=== PATIENT | female | born 1985 | race Hispanic/Latino ===

== ENCOUNTER 2025-03-07 22:53 | Emergency (ER) | payer SELFPAY ==
[2025-03-07 23:09] VITALS: BP 139/84
[2025-03-07 23:12] VITALS: BMI 27.9
[2025-03-07 23:14] LABS: % Basophils 0.6 % (0-2); % Immature Granulocytes 0.4 % (0-0.5); % Monocytes 4.6 % (1.7-9.3); % Neutrophils 64.4 % (42.2-75.2); Absolute Basophils 0.1 10^3/uL (0-0.2); Absolute Eosinophils 0.2 10^3/uL (0-0.7); Absolute Lymphocytes 2.8 10^3/uL (1.2-3.4); Absolute Monocytes 0.5 10^3/uL (0.1-0.6); Absolute Neutrophils 6.3 10^3/uL (1.4-6.5); Hematocrit 33.3 % (37.0-47.0); Hemoglobin 11.9 g/dL (12.0-16.0); Mean Corp Hgb Conc. 35.7 g/dL (33.0-37.0); Mean Corpuscular Volume 75.5 fL (81.0-99.0); Mean Platelet Volume 9.9 fL (7.4-10.4); Nucleated Red Blood Cells % 0 %; Platelet Count 258 10^3/uL (130-400); Red Blood Cell Count 4.41 10^6/uL (4.20-5.40); Red Cell Dist. Width 14.8 % (11.5-14.5); White Blood Cell Count 9.8 10^3/uL (4.8-10.8)
--- NOTE | 2025-03-07 23:25 | ED.GENMED ---
History of Present Illness
General
Chief Complaint: Suicidal Ideation
Source: patient
Exam Limitations: none
Time Seen by Provider: 03/07/25 23:13
History of Present Illness
History of Present Illness:
39yoF with no significant past medical history presenting via EMS for psychiatric evaluation. Patient has been feeling depressed recently. She reports one stressor after another and became very overwhelmed this evening. She had a thought that it
may be easier if she was no longer alive. This thought scared her and prompted her to call EMS. She denies any suicidal plans. She sees a virtual therapist weekly. She has never received any psychiatric diagnosis in the past and has never been
on medications. No prior history of psychiatric admissions. She denies any visual or auditory hallucinations. No drug or alcohol use.
Phy Exam
General Physical Exam
General Presentation: well appearing and no apparent distress
General age: appears stated age
General Skin: warm and dry
General Habitus: normal
General Mental: alert
ENT Exam
ENT Exam: normocephalic
Pulmonary Exam
Pulmonary Exam: no respiratory distress
Neurological Exam
Neurological Exam: alert
Marco Coma Scale
Eye Opening: Spontaneous
Verbal Response: Oriented
Motor Response: Obeys Commands
GCS Total Score: 15
Skin Exam
Skin Exam: normal color and warm/dry
Psychiatric Exam
Psychiatric Exam: depressed and other (Tearful during exam. Appears depressed. +Passive SI, no plan. No signs of psychosis.)
Course
Orders/Labs/Results
Orders:
Orders
03/07/25 22:58
Crisis Consult Urgent
Reason for Consult: OVERWHELMED TIRED, SUICIDAL THOUGHT.
03/07/25 22:59
Test Result ONCE
03/07/25 23:06
Alcohol Urgent
Basic Metabolic Panel Urgent
Complete Blood Count/With Diff Urgent
HCG, Serum Qualitative Screen Urgent
Comment: Notify provider if positive test present
Abnormal Lab Results
03/07/25
23:06
Hgb 11.9 L g/dL
(12.0-16.0)
Hct 33.3 L %
(37.0-47.0)
MCV 75.5 L fL
(81.0-99.0)
RDW 14.8 H %
(11.5-14.5)
Chloride 108 H mmol/L
(98-107)
Glucose 176 H mg/dl
(70-99)
03/07/25 23:06
03/07/25 23:06
Vital Signs
Initial and Last Documented VS:
Initial Vital Signs
Temp Pulse Resp BP Pulse Ox
98.5 F 134 18 139/84 98
03/07/25 23:09 03/07/25 23:09 03/07/25 23:09 03/07/25 23:09 03/07/25 23:09
Last Documented Vital Signs
Temp Pulse Resp BP Pulse Ox
98.5 F 115 12 111/79 100
03/07/25 23:09 03/08/25 00:19 03/08/25 00:19 03/08/25 00:19 03/08/25 00:19
MDM/Problems Addressed
Differential Diagnosis Includes:
39yoF here for psychiatric evaluation. Had a passive thought that it may be better if she was gone. No active plan to harm herself. Admits to being overwhelmed recently. Patient is tachycardic on arrival and is tearful during exam. She is
forthcoming with details and there are no signs of psychosis. Differential diagnosis includes but is not limited to: Situational stress, depression
Initial ED plan: Labs sent by nursing staff prior to evaluation. Will consult crisis.
*Critical Care Note
Total Time (30-74mins, 75-104mins- exclusive of procedures): Not Applicable
Update Note
Update Note:
Patient assessed by crisis. Plan is for intensive outpatient program and patient is in agreement with this. She has a virtual appt tomorrow morning with her therapist so will have close f/u. ED return precautions reviewed. She was discharged in
stable condition.
ED Attending Note
-
Portions of this chart may have been created with voice recognition software.� Occasional wrong word or��sound alike� substitutions may have occurred due to the inherent limitations of voice recognition software.
Discharge Plan
Departure
Patient Disposition: Home (Routine Discharge)
Date of Disposition: 03/07/25
Time of Disposition: 23:54
Patient with high blood pressure during this ER visit?: No
Discharge Problem:
Suicidal ideation, Encounter for psychiatric assessment
Instructions: Depression, Adult (DC)
Referrals:
Munira Hicks MD [Family Provider] -
Activity Restrictions/Additional Instructions:
You will receive an intake phone call tomorrow for the outpatient program. Please follow-up with your therapist tomorrow as previously scheduled.
Return to the ER with any worsening symptoms including if you have any plans to hurt yourself.
Interventions
Interventions:
*Risk Screen - Suicide Last Done: 03/07/25 22:54
*General Assessment Last Done: 03/07/25 23:13
*Neglect/Abuse Screening Last Done: 03/07/25 22:54
*ED- Fall Risk Assessment Last Done: 03/07/25 23:13
*ED COVID-19 Vaccine History Last Done: 03/07/25 23:13
*Nursing Disposition Last Done: 03/08/25 00:20
ED-Psychological Assessment Last Done: 03/07/25 23:13
Discharge Date and Time
Discharge Date/Time: 03/08/25 00:21
Print Language: SLOVAK
[2025-03-07 23:27] LABS: HCG, Serum Qualitative Screen Negative
[2025-03-07 23:31] LABS: Blood Urea Nitrogen 14 mg/dl (7-17); Calcium 9.1 mg/dl (8.4-10.2); Carbon Dioxide 22 mmol/L (22-30); Chloride 108 mmol/L (98-107); Estimated Creatinine Clearance 91 ml/min; Glucose 176 mg/dl (70-99); Potassium 3.6 mmol/L (3.5-5.1); Sodium 141 mmol/L (135-145); eGFR > 60.00
[2025-03-07 23:34] LABS: Alcohol None Detected
[2025-03-08 00:19] VITALS: BP 111/79
== END 2025-03-08 00:21 | disposition home or self-care (01) ==
LOC: EMR 22:53
PROVIDERS: EMERGENCY PHYSICIAN Emergency Medicine; FAMILY PHYSICIAN Family Medicine
DX: Z00.8 Encounter for other general examination (principal); R45.851 Suicidal ideations; R00.0 Tachycardia, unspecified
CPT/HCPCS: 99283; 80048; 82077; 84703; 85025